=== PATIENT | male | born 1975 | race Caucasian/White ===

== ENCOUNTER 2016-10-01 08:30 | Day surgery (SDC) | payer OTHER ==
[2016-09-23 12:05] VITALS: BMI 31.0
[2016-10-01 09:01] VITALS: TEMP 98.1
[2016-10-01] MEDS ORDERED: MIDAZOLAM HCL 2 MG/2 ML SINGLE DOSE VIAL ONE (11:58)
[2016-10-01] MEDS ORDERED: PROPOFOL 20 ML ONE (11:58)
[2016-10-01 13:22] VITALS: BP 112/67; PULSE 69
--- NOTE | 2016-10-01 13:38 | OP ---
DATE OF OPERATION: 10/01/2016 PREOPERATIVE DIAGNOSIS: Right knee patellar tendinosis. POSTOPERATIVE DIAGNOSIS: Right knee patellar tendinosis. PROCEDURE PERFORMED: Right knee percutaneous tenotomy. SURGEON: Joseph Dorado MD ANESTHESIA: Sedation and local. CONDITION: Postoperative condition stable. COMPLICATIONS: None. 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 It had been unresponsive to conservative means. Treatment options, including nonoperative versus percutaneous versus operative management, were discussed. The patient did elect for percutaneous tenotomy. The procedure risks were discussed in detail, including bleeding, infection, neurovascular injury, need for further procedures, including open debridement and repair, postprocedure patellar tendon rupture. We discussed medical risks, such as heart attack, stroke, DVT, PE and . The patient voiced understanding and elected to proceed. DESCRIPTION OF PROCEDURE: The patient was brought to the operating room, where sedation was administered. The left lower extremity was then prepped and draped in the usual sterile fashion. No antibiotics were needed for this particular procedure, based on its minimal invasiveness. The usual standard procedure was performed. At this point, an ultrasound probe was applied to the patellar tendon. Diagnostic ultrasound was performed, demonstrating tendinosis as well as calcifications within the proximal portion of the patellar tendon just lateral to the midline. The entire rest of the tendon appeared linear, without any specific tendinosis. A 23-gauge needle was used to instill 1% lidocaine in the region where the probe will be inserted. This was done subcutaneously. Stab incision was now made using an 11 blade and the high-energy probe was inserted. Under ultrasonic guidance, the areas of tendinosis was targeted and several sweeps, progressing from lateral to medial and then distal to proximal, were made utilizing the high-energy probe. These hypoechoic regions were then seen to have spotty hyperechoic regions within, consistent with ablation from the ultrasound. The total time used was 1 minute 53 seconds of ultrasound energy. A single absorbable 4-0 Monocryl suture was placed through the wound and a Steri-Strip was [id number]. The patient was placed into a knee immobilizer. He was transferred to the recovery room in stable condition. Richie ALEXIS/[id number]
== END 2016-10-01 14:00 | disposition home or self-care (01) ==
LOC: FASU 08:30
PROVIDERS: ATTEND Orthopaedic Surgery Sports Medicine
PROC: 0LN63ZZ Release Left Lower Arm and Wrist Tendon, Percutaneous Approach (ICD-10-PCS; principal; 2016-10-01 12:21)
DX: M76.52 Patellar tendinitis, left knee (principal)